=== PATIENT | male | born 1975 | race Caucasian/White ===

== ENCOUNTER → 2016-08-09 | Outpatient (CLI) | payer BC | END | disposition home or self-care (01) | LOC: GMAL 10:31 | PROVIDERS: ATTEND Family Medicine | DX: Z12.5 Encounter for screening for malignant neoplasm of prostate (principal); E29.1 Testicular hypofunction ==

== ENCOUNTER → 2016-11-27 | Outpatient (CLI) | payer BC | END | disposition home or self-care (01) | LOC: GMAL 10:47 | PROVIDERS: ATTEND Family Medicine | DX: E29.1 Testicular hypofunction (principal) ==

== ENCOUNTER → 2017-01-29 | Outpatient (CLI) | payer BC ==
--- NOTE | 2017-01-30 04:04 | RAD ---
Examination: XR KNEE 4 OR MORE VIEWS dated 01/29/2017 8:55 AM CDT History: OSTEOARTHRITIS, RIGHT KNEE Comparison: MRI of the right knee from 2016 Technique: Four views of the right knee FINDINGS: Mild medial compartment joint space narrowing. No fracture or dislocation. Possible small suprapatellar effusion. Normal mineralization. IMPRESSION: Mild medial compartment joint space narrowing and possible small suprapatellar effusion. Electronically signed by: Sunny Salmeron MD 01/30/2017 4:03 AM CDT
== END | disposition home or self-care (01) ==
LOC: RAD 08:45
PROVIDERS: ATTEND Orthopaedic Surgery
DX: M17.11 Unilateral primary osteoarthritis, right knee (principal)

== ENCOUNTER → 2017-06-26 | Outpatient (CLI) | payer BC | LOC: GMAL 10:07 | PROVIDERS: ATTEND Family Medicine | DX: Z00.00 Encounter for general adult medical examination without abnormal findings (principal) ==

== ENCOUNTER → 2017-10-22 | Outpatient (CLI) | payer BC | LOC: GMAL 10:34 | PROVIDERS: ATTEND Family Medicine | DX: E29.1 Testicular hypofunction (principal); Z12.5 Encounter for screening for malignant neoplasm of prostate ==

== ENCOUNTER → 2018-03-05 | Outpatient (CLI) | payer BC | LOC: GMAL 10:42 | PROVIDERS: ATTEND Family Medicine | DX: E29.1 Testicular hypofunction (principal); Z79.899 Other long term (current) drug therapy ==

== ENCOUNTER → 2018-07-09 | Outpatient (CLI) | payer BC | LOC: GMAL 10:37 | PROVIDERS: ATTEND Family Medicine | DX: M25.572 Pain in left ankle and joints of left foot (principal) ==

== ENCOUNTER → 2018-07-22 | Outpatient (CLI) | payer BC | LOC: GMAL 10:36 | PROVIDERS: ATTEND Family Medicine | DX: E29.1 Testicular hypofunction (principal); Z79.899 Other long term (current) drug therapy ==

== ENCOUNTER → 2019-04-26 | Outpatient (CLI) | payer BC | LOC: RESP 12:01 | PROVIDERS: ATTEND Family Medicine | DX: R00.0 Tachycardia, unspecified (principal) ==

== ENCOUNTER 2019-08-12 20:18 | Emergency (ER) | payer BC ==
--- NOTE | 2019-08-12 20:37 | ED.PDOC ---
History of Present Illness - General Chief Complaint: Trauma Stated Complaint: left arm fracture Time Seen by Provider: 08/12/19 20:34 Source: patient, family Additional Information: 44 year old medical problems, patient presents to the hospital after a fall patient was trying to climb a fence and then he fell while jumping hand hit his left arm no head trauma, patient looks uncomfortable patient endorsing pain to the left elbow and forearm - History of Present Illness Occurred: just prior to arrival Pain Location: upper extremity Method of Injury: fall Improving Factors: nothing Worsening Factors: nothing Loss of Consciousness: no loss of consciousness Allergies/Adverse Reactions: Allergies NO KNOWN ALLERGY Allergy (Unverified 09/01/14 16:35) Home Medications: Ambulatory Orders Lamotrigine 100 mg PO BID 09/01/14 Levothyroxine Sodium [Synthroid] 0.15 mg PO DAILY 09/01/14 Pravastatin Sodium 80 mg PO BEDTIME 09/01/14 Sertraline HCl 25 mg PO DAILY 09/01/14 Amphetamine-Dextroamphetamine [Adderall] 1 tab PO DAILY 08/03/15 Tamsulosin HCl [Flomax] 0.4 mg PO BEDTIME 08/03/15 Amoxicillin & Pot Clavulanate [Augmentin Tab] 875 mg PO BID #10 tab 08/12/19 Review of Systems - Review of Systems Constitutional: States: no symptoms reported EENTM: States: no symptoms reported Respiratory: States: no symptoms reported Cardiology: States: no symptoms reported Gastrointestinal/Abdominal: States: no symptoms reported Genitourinary: States: no symptoms reported Musculoskeletal: States: no symptoms reported Skin: States: no symptoms reported Neurological: States: no symptoms reported Endocrine: States: no symptoms reported Hematologic/Lymphatic: States: no symptoms reported All other Systems: Reviewed and Negative Past Medical History (General) - Patient Medical History Hx Congestive Heart Failure: No Hx Diabetes: No Family Medical History - Family History Father Family History: Unknown Physical Exam - Physical Exam General Appearance: Alert, Well Developed, Well Groomed, Well Hydrated, Well Nourished Head Injury: no evidence of injury ENT Exam: hearing grossly normal, no evidence of ENT injury, no dental injury, clear fluid (ears) Neck Exam: non-tender, full range of motion, normal alignment, normal inspection Cardiovascular/Respiratory: regular rate, rhythm, no M/R/G, normal peripheral pulses, no JVD, normal breath sounds, no respiratory distress Gastrointestinal/Abdominal: normal bowel sounds, non tender, soft, no organomegaly, no pulsatile mass Extremity Exam: other - proximal forearm sweling with a small puncture and small abrasion noted on the right knee intact neurovascular exam 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 no loc arrived POV and did not hit his head patient has a wound noted lateral aspect of the forearm the wound is no dirty and no evidence of bone exposure on exam, patient is has no neurovascular deficits x ray showed a non displaced proximal ulnar fracture with no connection with the skin patient case was discussed with Dr Stinson, and he will see patient at his office i closed the forearm wound with one suture. patient will be placed on a long posterior splint and discharge home with augmentin and pain medications keep extremity elevated and return to the ER if worsening pain, tingling or numbness patient has no neurological deficits and no open fracture since fractures part do not touch the skin Procedures - Splinting Left Midarm Hand-Made Type: orthoglass Splint: long posterior Pre-Proc Neuro Vasc Exam: normal Post-Proc Neuro Vasc Exam: normal - Laceration/Wound Repair Left Proximal Arm Wound's Depth, Shape: superficial, linear Wound Explored: clean Irrigated w/ Saline (cc's): 20 Betadine Prep?: No Anesthesia: 1% Lidocaine Wound Debrided: minimal Wound Repaired With: sutures Suture Size/Type: prolene Number of Sutures: 1 Layer Closure?: No Sterile Dressing Applied?: Yes Splint Applied?: Yes Sling Applied?: Yes Departure - Departure Clinical Impression: Laceration Left ulnar fracture Qualifiers: Encounter type: initial encounter Ulna location: proximal ulna Fracture type: closed Fracture morphology: other fracture Qualified Code(s): S52.092A - Other fracture of upper end of left ulna, initial encounter for closed fracture Disposition: Discharge to Home or Self Care Condition: Fair Departure Forms: ED Discharge - Pt. Copy, Patient Portal Self Enrollment Instructions: DI for Trauma, Laceration Repair, Forearm Fracture (DC) Referrals: Armani Mccann III, MD [Primary Care Provider] - 1-2 Weeks Elmer Stinson MD [Active Staff] - 1-2 Weeks Prescriptions: Amoxicillin & Pot Clavulanate [Augmentin Tab] 875 mg PO BID #10 tab Home Medications: Ambulatory Orders Lamotrigine 100 mg PO BID 09/01/14 Levothyroxine Sodium [Synthroid] 0.15 mg PO DAILY 09/01/14 Pravastatin Sodium 80 mg PO BEDTIME 09/01/14 Sertraline HCl 25 mg PO DAILY 09/01/14 Amphetamine-Dextroamphetamine [Adderall] 1 tab PO DAILY 08/03/15 Tamsulosin HCl [Flomax] 0.4 mg PO BEDTIME 08/03/15 Amoxicillin & Pot Clavulanate [Augmentin Tab] 875 mg PO BID #10 tab 08/12/19 Additional Instructions: return to the er if severe pain, tingling or numbness
[2019-08-12] MEDS ORDERED: HYDROmorphone HCL INJ 2 MG/ML VIAL IV ONE (20:38)
[2019-08-12 20:44] VITALS: TEMP 96.7
[2019-08-12] MEDS ORDERED: TETANUS-DIPHTHERIA TOXOIDS (TD) SYG IM ONE (20:56)
[2019-08-12 21:28] VITALS: BP 132/62; O2SAT 98
[2019-08-12] MEDS ORDERED: NEOMYCIN-BACITRACIN-POLYMYXIN 0.9 GM UD TOP ONE (21:34)
--- NOTE | 2019-08-12 21:38 | RAD ---
EXAM DESCRIPTION: Forearm,Left (accession [id number]), Elbow,Left 3 Views (accession [id number]) CLINICAL HISTORY: 44 years Male fall COMPARISON: All TECHNIQUE: AP and lateral views of the left forearm as well as AP and lateral views of the left elbow are obtained. FINDINGS: There is an acute, transverse, nondisplaced fracture of the proximal diaphysis of the ulna. There is no evidence of subluxation or dislocation. The joint spaces are preserved. There is no evidence of degenerative osteophytosis or sclerosis. There is no evidence of marginal erosive changes to suggest an inflammatory arthritis. There is no significant soft tissue swelling or mass. No evidence of significant soft tissue calcifications. No radiopaque foreign bodies. There is no evidence of an elbow joint effusion or hemarthrosis. IMPRESSION: Acute fracture of the proximal diaphysis of the ulna. Remainder of findings as described above. Electronically signed by: Alisha Calvillo MD 08/12/2019 9:37 PM CDT
[2019-08-12] MEDS ORDERED: LIDOCAINE 1% 10 ML VIAL INJ ONE (21:39)
--- NOTE | 2019-08-12 21:39 | RAD ---
EXAM DESCRIPTION: Forearm,Left (accession [id number]), Elbow,Left 3 Views (accession [id number]) CLINICAL HISTORY: 44 years Male fall COMPARISON: All TECHNIQUE: AP and lateral views of the left forearm as well as AP and lateral views of the left elbow are obtained. FINDINGS: There is an acute, transverse, nondisplaced fracture of the proximal diaphysis of the ulna. There is no evidence of subluxation or dislocation. The joint spaces are preserved. There is no evidence of degenerative osteophytosis or sclerosis. There is no evidence of marginal erosive changes to suggest an inflammatory arthritis. There is no significant soft tissue swelling or mass. No evidence of significant soft tissue calcifications. No radiopaque foreign bodies. There is no evidence of an elbow joint effusion or hemarthrosis. IMPRESSION: Acute fracture of the proximal diaphysis of the ulna. Remainder of findings as described above. Electronically signed by: Alisha Calvillo MD 08/12/2019 9:37 PM CDT
== END 2019-08-12 22:06 | disposition home or self-care (01) ==
LOC: ER 20:18
DX: S52.092A Other fracture of upper end of left ulna, initial encounter for closed fracture (principal); S51.812A Laceration without foreign body of left forearm, initial encounter; S80.211A Abrasion, right knee, initial encounter; W18.30XA Fall on same level, unspecified, initial encounter; Y93.89 Activity, other specified; Z79.899 Other long term (current) drug therapy; Y92.9 Unspecified place or not applicable
CPT/HCPCS: 73080; 73090; J1170

== ENCOUNTER → 2019-09-20 | Outpatient (CLI) | payer BC ==
--- NOTE | 2019-09-20 08:32 | RAD ---
EXAM DESCRIPTION: Forearm,Left CLINICAL HISTORY: 44 years Male, CLOSED FRACTURE OF PROXIMAL END OF ULNA LEFT COMPARISON: None available. FINDINGS: The visualized bones are well-mineralized. Comminuted fracture of the proximal shaft of the radius with some degree of interval healing. Plate and screw fixation appears intact. The soft tissues appear grossly unremarkable. IMPRESSION: Comminuted fracture of the proximal shaft of the radius with some degree of interval healing. Plate and screw fixation appears intact. Electronically signed by: Hannah Werner MD 09/20/2019 8:30 AM CDT
== END ==
LOC: RAD 07:47
PROVIDERS: ATTEND Orthopaedic Surgery
DX: S52.002D Unspecified fracture of upper end of left ulna, subsequent encounter for closed fracture with routine healing (principal)

== ENCOUNTER → 2019-11-04 | Outpatient (CLI) | payer BC ==
--- NOTE | 2019-11-04 14:23 | RAD ---
EXAM DESCRIPTION: Forearm,Left CLINICAL HISTORY: 44 years Male, FRACTURE OF SHAFT OF ULNA COMPARISON: 09/20/2019. FINDINGS: The visualized bones are well-mineralized.No acute fracture or dislocation. Intact plate and screw fixation of the proximal ulna with near complete healing of the fractures. The soft tissues appear grossly unremarkable. IMPRESSION: Intact plate and screw fixation of the proximal ulna with near complete healing of the fractures. Electronically signed by: Hannah Werner MD 11/04/2019 2:22 PM CDT
== END ==
LOC: RAD 07:44
PROVIDERS: ATTEND Orthopaedic Surgery
DX: S52.201D Unspecified fracture of shaft of right ulna, subsequent encounter for closed fracture with routine healing (principal); Z98.890 Other specified postprocedural states